=== PATIENT | female | born 1960 | race Caucasian/White ===

== ENCOUNTER 2017-06-16 21:13 | Inpatient (IN) | payer OTHER ==
[~2017-06-16] VITALS: Ht 154.9 cm; Wt 65.7 kg
[2017-06-16 21:48] LABS: BASOPHIL (%) 0 % (0-1); EOSINOPHIL (%) 0.2 % (0-5); HEMATOCRIT 45.4 % (36.0-46.0); HEMOGLOBIN 15.6 G/DL (11.9-15.5); IMMATURE GRANULOCYTE (%) 0.3 % (0.0-0.7); LYMPHOCYTE COUNT 3.3 K/uL (1.0-2.8); MCH 29.3 PG (29.0-34.0); MCHC 34.4 G/DL (30.0-36.0); MCV 85.2 FL (83-99); MONOCYTE COUNT 0.2 K/uL (0-0.8); NEUTROPHIL (%) 44.5 % (45-76); NEUTROPHIL COUNT 2.8 K/uL (1.8-6.4); PLATELET COUNT 309 K/uL (156-360); RBC DIS.WIDTH-CV 13.4 % (11.8-14.6); RBC DIS.WIDTH-SD 41.9 % (39-53); RED BLOOD COUNT 5.33 M/uL (3.80-5.20); WHITE BLOOD COUNT 6.3 K/uL (4.1-10.2)
[2017-06-16 22:04] LABS: PTT 29.8 SEC (25-37)
[2017-06-16 22:07] LABS: ALBUMIN 3.9 g/dL (3.2-4.8); CHLORIDE 109 mEq/L (99-109); SODIUM 144 mEq/L (136-147)
[2017-06-16 22:08] LABS: CARBON DIOXIDE (BICARBONATE) 22.2 MEQ/L (20-31)
[2017-06-16 22:09] LABS: GLUCOSE 167 mg/dL (70-99); TOTAL PROTEIN 6.2 g/dL (6.4-8.3)
[2017-06-16 22:11] LABS: TOTAL BILIRUBIN 0.4 mg/dL (0.0-1.0)
[2017-06-16 22:13] LABS: ALKALINE PHOSPHATASE 81 IU/L (3-129); GFR ESTIMATE (CALCULATED) > 59 mL/min/
[2017-06-16 22:14] LABS: AST (GOT) 17 IU/L (2-34); UREA NITROGEN (BUN) 17 mg/dL (9-23)
[2017-06-16 22:16] LABS: ALT (GPT) 11 IU/L (3-49); TROP-I INTERPRETATION NEGATIVE; TROPONIN-I < 0.01 ng/mL (0.0-0.30)
[2017-06-16] MEDS ORDERED: ESTROGEN-METHY1 EAC2 PO (22:37)
[2017-06-16] MEDS ORDERED: BELSOMRA20 MG PO (22:38)
[2017-06-16] MEDS ORDERED: NEURONTIN600 MG PO (22:38)
[2017-06-16] MEDS ORDERED: ADDERALL XR 2020 MG PO (22:39)
[2017-06-16] MEDS ORDERED: KLONOPIN0.5 M1 PO (22:39)
[2017-06-16] MEDS ORDERED: BUSPAR10 MG PO (22:39)
[2017-06-16] MEDS ORDERED: MINIPRESS2 MG PO (22:40)
[2017-06-16] MEDS ORDERED: ADDERALL XR 1010 MG PO (22:40)
[2017-06-16] MEDS ORDERED: BRINTELLIX20 MG PO (22:40)
[2017-06-16] MEDS ORDERED: ADVIL200 MG PO (22:41)
[2017-06-16 22:56] LABS: APPEARANCE CLEAR ((CLEAR)); BILIRUBIN NEGATIVE; BLOOD NEGATIVE; COLOR YELLOW ((YELLOW)); GLUCOSE (STRIP) NEGATIVE; KETONES NEGATIVE; LEUKOCYTES NEGATIVE; NITRITE NEGATIVE; PROTEIN (STRIP) 30; UCUL ADDED? NO; UROBILINOGEN 0.2 MG/DL (0.2-1.0)
[2017-06-16 23:13] LABS: SPECIFIC GRAVITY 1.067 (1.000-1.030)
[2017-06-17] VITALS (18 sets, daily range): BP systolic 110–144; BP diastolic 57–96
[2017-06-17 13:29] LABS: BASOPHIL (%) 0.2 % (0-1); EOSINOPHIL (%) 2.3 % (0-5); EOSINOPHIL COUNT 0.2 K/uL (0-0.3); HEMATOCRIT 34.5 % (36.0-46.0); IMMATURE GRANULOCYTE (%) 0.2 % (0.0-0.7); LYMPHOCYTE (%) 27.9 % (15-42); LYMPHOCYTE COUNT 1.8 K/uL (1.0-2.8); MCH 29.6 PG (29.0-34.0); MCHC 33.9 G/DL (30.0-36.0); MCV 87.3 FL (83-99); MONOCYTE (%) 5.3 % (3-12); MONOCYTE COUNT 0.4 K/uL (0-0.8); NEUTROPHIL (%) 64.1 % (45-76); NEUTROPHIL COUNT 4.2 K/uL (1.8-6.4); RBC DIS.WIDTH-CV 13.6 % (11.8-14.6); RBC DIS.WIDTH-SD 43.6 % (39-53); WHITE BLOOD COUNT 6.6 K/uL (4.1-10.2)
[2017-06-17 13:30] LABS: HEMOGLOBIN 11.7 G/DL (11.9-15.5); RED BLOOD COUNT 3.95 M/uL (3.80-5.20)
[2017-06-17 13:36] LABS: CHLORIDE 110 MEQ/L (99-109); CREATININE 0.7 MG/DL (0.6-1.3); GFR ESTIMATE (CALCULATED) > 59 mL/min/; SODIUM 144 MEQ/L (136-147); UREA NITROGEN (BUN) 9 mg/dL (9-23)
[2017-06-17 13:42] LABS: GLUCOSE 93 mg/dL (70-99)
[2017-06-17 13:44] LABS: PLAT.SUFFICIENCY ADEQUATE; PLATELET COUNT 197 K/uL (156-360)
[2017-06-17 19:03] LABS: HIGH-SENS C-REACTIVE PROTEIN 2.41 MG/DL (0.02-0.20)
[2017-06-18 04:00] VITALS: BP 113/65
[2017-06-18 08:27] VITALS: BP 128/70
[2017-06-18 11:30] VITALS: BP 113/64
[2017-06-18 16:58] LABS: PROCALCITONIN+ 0.33 ng/mL (<0.10)
[2017-06-20 16:36] LABS: M. pneumoniae Ab, IgG >5.00 (<=0.90); M. pneumoniae Ab, IgM 24 U/mL (<770)
== END 2017-06-18 12:04 | disposition home or self-care (01) | DRG 872 ==
LOC: EME 21:13 → 4WEST 23:18 → EDOF 23:18 → ENRESERV 23:21 → 4WEST 06-17 01:08 → ENRESERV 06-17 21:17 → 4EAST 06-17 22:31 → ENPENDDIS 06-18 → 4EAST 06-18 12:04
PROVIDERS: Emergency Medicine; Internal Medicine; Obstetrics & Gynecology
DX: A41.9 Sepsis, unspecified organism (principal); E87.2 Acidosis; R57.9 Shock, unspecified; I10 Essential (primary) hypertension; E87.6 Hypokalemia; E86.1 Hypovolemia; G47.00 Insomnia, unspecified; Z82.49 Family history of ischemic heart disease and other diseases of the circulatory system
CPT/HCPCS: 71045; 71275; 74174; 80047; 80048; 80053; 81003; 82803; 83605; 84145 90; 84484; 85025; 85610; 85730; 86141; 86664; 86665; 86713 90; 86738 90; 86850; 86900; 86901; 87040; 87502; 87641; 93005; C1751; J2405; J2543; J3370; J7030; J7050

== ENCOUNTER 2017-09-05 18:55 | Emergency (ER) | payer OTHER ==
[~2017-09-05] VITALS: Ht 154.9 cm; Wt 55.4 kg
[~2017-09-05 18:55] MED LIST: ADDERALL XR 1010 MG PO; ADDERALL XR 2020 MG PO; ADVIL200 MG PO; BELSOMRA20 MG PO; BRINTELLIX20 MG PO; BUSPAR10 MG PO; ESTROGEN-METHY1 EAC2 PO; KLONOPIN0.5 M1 PO; MINIPRESS2 MG PO; NEURONTIN600 MG PO
[2017-09-05 19:37] LABS: HEMATOCRIT 42.3 % (36.0-46.0); HEMOGLOBIN 14.5 G/DL (11.9-15.5); MCH 29.9 PG (29.0-34.0); MCHC 34.3 G/DL (30.0-36.0); MCV 87.2 FL (83-99); PLATELET COUNT 265 K/uL (156-360); RBC DIS.WIDTH-CV 14.4 % (11.8-14.6); RBC DIS.WIDTH-SD 46.4 % (39-53); RED BLOOD COUNT 4.85 M/uL (3.80-5.20); WHITE BLOOD COUNT 4.7 K/uL (4.1-10.2)
[2017-09-05 19:45] LABS: ALBUMIN 4.3 g/dL (3.2-4.8); CHLORIDE 108 mEq/L (99-109); POTASSIUM 3.1 mEq/L (3.7-5.4); SODIUM 142 mEq/L (136-147)
[2017-09-05 19:48] LABS: GLUCOSE 109 mg/dL (70-99); TOTAL PROTEIN 7.1 g/dL (6.4-8.3)
[2017-09-05 19:50] LABS: TOTAL BILIRUBIN 0.3 mg/dL (0.0-1.0)
[2017-09-05 19:51] LABS: ALKALINE PHOSPHATASE 100 IU/L (3-129); CREATININE 0.9 mg/dL (0.6-1.3); GFR ESTIMATE (CALCULATED) > 59 mL/min/
[2017-09-05 19:52] LABS: UREA NITROGEN (BUN) 13 mg/dL (9-23)
[2017-09-05 19:53] LABS: AST (GOT) 13 IU/L (2-34)
[2017-09-05 19:54] LABS: ALT (GPT) 14 IU/L (3-49)
[2017-09-05 20:00] LABS: APPEARANCE CLEAR ((CLEAR)); BILIRUBIN NEGATIVE; BLOOD LARGE; COLOR YELLOW ((YELLOW)); GLUCOSE (STRIP) NEGATIVE; KETONES 5; LEUKOCYTES NEGATIVE; NITRITE NEGATIVE; PROTEIN (STRIP) 100; SPECIFIC GRAVITY 1.036 (1.000-1.030); UROBILINOGEN 0.2 MG/DL (0.2-1.0)
[2017-09-05 20:08] LABS: BACTERIA NONE SEEN /HPF; EPITHELIAL CELLS RARE /HPF; MUCUS 1+ /LPF; RED BLOOD CELLS 0-5 /HPF (0-5); UCUL ADDED? NO; WHITE BLOOD CELLS 0-5 /HPF (0-5)
[2017-09-05] MEDS ORDERED: PHENERGAN25 MG PR (22:41)
[2017-09-05] MEDS ORDERED: REGLAN10 MG PO (22:41)
[2017-09-05 23:10] VITALS: BP 152/102
== END 2017-09-05 23:13 | disposition home or self-care (01) ==
LOC: EME 18:55
PROVIDERS: Nurse Practitioner Family
DX: D25.9 Leiomyoma of uterus, unspecified (principal); R11.2 Nausea with vomiting, unspecified; F32.9 Major depressive disorder, single episode, unspecified; I10 Essential (primary) hypertension
CPT/HCPCS: 76856; 80053; 81003; 85027; 99281; 99284

== ENCOUNTER 2017-09-17 15:32 | Inpatient (IN) | payer OTHER ==
[~2017-09-17] VITALS: Ht 154.9 cm; Wt 56.0 kg
[~2017-09-17 15:32] MED LIST changes: -KLONOPIN0.5 M1 PO; +KLONOPIN1 MG PO; +PHENERGAN25 MG PR; +REGLAN10 MG PO
[2017-09-17 16:08] LABS: HEMATOCRIT 51.1 % (36.0-46.0); HEMOGLOBIN 17.8 G/DL (11.9-15.5); MCH 30.2 PG (29.0-34.0); MCHC 34.8 G/DL (30.0-36.0); MCV 86.6 FL (83-99); PLATELET COUNT 317 K/uL (156-360); RBC DIS.WIDTH-CV 13.7 % (11.8-14.6); RBC DIS.WIDTH-SD 43.9 % (39-53); WHITE BLOOD COUNT 13.4 K/uL (4.1-10.2)
[2017-09-17 16:14] LABS: ALBUMIN 4.9 g/dL (3.2-4.8)
[2017-09-17 16:15] LABS: CHLORIDE 104 mEq/L (99-109); POTASSIUM 3.7 mEq/L (3.7-5.4); SODIUM 141 mEq/L (136-147)
[2017-09-17 16:17] LABS: GLUCOSE 121 mg/dL (70-99); TOTAL PROTEIN 8.6 g/dL (6.4-8.3)
[2017-09-17 16:19] LABS: TOTAL BILIRUBIN 0.3 mg/dL (0.0-1.0)
[2017-09-17 16:20] LABS: ALKALINE PHOSPHATASE 160 IU/L (3-129)
[2017-09-17 16:21] LABS: CREATININE 1.9 mg/dL (0.6-1.3); GFR ESTIMATE (CALCULATED) 29 mL/min/
[2017-09-17 16:22] LABS: AST (GOT) 33 IU/L (2-34); UREA NITROGEN (BUN) 31 mg/dL (9-23)
[2017-09-17 16:23] LABS: ALT (GPT) 60 IU/L (3-49)
[2017-09-17 16:52] LABS: APPEARANCE CLOUDY ((CLEAR)); BILIRUBIN SMALL; BLOOD NEGATIVE; COLOR AMBER ((YELLOW)); GLUCOSE (STRIP) NEGATIVE; KETONES 5; LEUKOCYTES NEGATIVE; NITRITE NEGATIVE; PROTEIN (STRIP) 100; SPECIFIC GRAVITY 1.027 (1.000-1.030)
[2017-09-17 17:23] LABS: RED BLOOD CELLS NONE SEEN /HPF (0-5)
[2017-09-17 17:24] LABS: BACTERIA 1+ /HPF; EPITHELIAL CELLS 3+ /HPF; MUCUS 3+ /LPF; UCUL ADDED? NO; WHITE BLOOD CELLS RARE /HPF (0-5)
[2017-09-17 18:01] LABS: MAGNESIUM 2.2 mg/dL (1.3-2.7)
[2017-09-17 18:08] LABS: LIPASE 28 U/L (1.0-51.0)
[2017-09-17] MEDS ORDERED: PROMETHEGAN25 MG PR (18:44)
[2017-09-17] MEDS ORDERED: ARIPIPRAZOLE2 MG PO (18:45)
[2017-09-17] MEDS ORDERED: BUPROPION XL300 MG PO (18:45)
[2017-09-17] MEDS ORDERED: FLUVOXAMINE MA150 MG PO (18:46)
[2017-09-17] MEDS ORDERED: TEMAZEPAM30 MG PO (18:47)
[2017-09-17 19:21] LABS: C DIFF TOXIN NEGATIVE (NEGATIVE)
[2017-09-18 02:11] VITALS: BP 125/85
[2017-09-18 07:30] VITALS: BP 97/54
[2017-09-18 09:51] LABS: HEMATOCRIT 36.3 % (36.0-46.0); MCH 28.9 PG (29.0-34.0); MCHC 33.1 G/DL (30.0-36.0); MCV 87.5 FL (83-99); RBC DIS.WIDTH-CV 13.4 % (11.8-14.6); RBC DIS.WIDTH-SD 43.3 % (39-53); WHITE BLOOD COUNT 4.6 K/uL (4.1-10.2)
[2017-09-18 09:56] LABS: RED BLOOD COUNT 4.15 M/uL (3.80-5.20)
[2017-09-18 10:08] LABS: CHLORIDE 111 MEQ/L (99-109); GLUCOSE 158 mg/dL (70-99); SODIUM 141 MEQ/L (136-147); UREA NITROGEN (BUN) 12 mg/dL (9-23)
[2017-09-18 10:09] LABS: GFR ESTIMATE (CALCULATED) > 59 mL/min/
[2017-09-18 10:40] LABS: PLATELET COUNT 187 K/uL (156-360)
[2017-09-18 10:43] LABS: MAGNESIUM 1.6 mg/dl (1.3-2.7)
[2017-09-18 19:55] VITALS: BP 142/79
[2017-09-18 23:37] VITALS: BP 150/79
[2017-09-19 06:35] LABS: BASOPHIL (%) 0.3 % (0-1); EOSINOPHIL (%) 6.5 % (0-5); EOSINOPHIL COUNT 0.4 K/uL (0-0.3); HEMATOCRIT 37.8 % (36.0-46.0); HEMOGLOBIN 12.6 G/DL (11.9-15.5); IMMATURE GRANULOCYTE (%) 0.3 % (0.0-0.7); LYMPHOCYTE (%) 38.3 % (15-42); LYMPHOCYTE COUNT 2.3 K/uL (1.0-2.8); MCH 29.1 PG (29.0-34.0); MCHC 33.3 G/DL (30.0-36.0); MCV 87.3 FL (83-99); MONOCYTE (%) 6.5 % (3-12); MONOCYTE COUNT 0.4 K/uL (0-0.8); NEUTROPHIL (%) 48.1 % (45-76); NEUTROPHIL COUNT 2.8 K/uL (1.8-6.4); PLATELET COUNT 191 K/uL (156-360); RBC DIS.WIDTH-CV 13.1 % (11.8-14.6); RBC DIS.WIDTH-SD 41.4 % (39-53); RED BLOOD COUNT 4.33 M/uL (3.80-5.20); WHITE BLOOD COUNT 5.9 K/uL (4.1-10.2)
[2017-09-19 07:15] LABS: ALBUMIN 3.5 G/DL (3.2-4.8); ALKALINE PHOSPHATASE 89 IU/L (3-129); ALT (GPT) 32 IU/L (3-49); AST (GOT) 19 IU/L (2-34); CHLORIDE 109 MEQ/L (99-109); CREATININE 0.9 MG/DL (0.6-1.3); GFR ESTIMATE (CALCULATED) > 59 mL/min/; SODIUM 141 MEQ/L (136-147); TOTAL BILIRUBIN 0.3 MG/DL (0.0-1.0); TOTAL PROTEIN 5.3 G/DL (6.4-8.3); UREA NITROGEN (BUN) 4 mg/dL (9-23)
[2017-09-19 07:16] VITALS: BP 129/74
[2017-09-19 07:18] LABS: GLUCOSE 93 mg/dL (70-99); POTASSIUM 3.8 MEQ/L (3.7-5.4)
[2017-09-19] MEDS ORDERED: ZOFRAN8 MG PO (10:39)
[2017-09-19] MEDS ORDERED: PROTONIX40 MG PO (10:39)
== END 2017-09-19 13:50 | disposition home or self-care (01) | DRG 684 ==
LOC: EME 15:32 → EDOF 23:55 → 5EAST 23:55 → ENRESERV 23:57 → 5EAST 09-18 01:56 → ENPENDDIS 09-19 → 5EAST 09-19 13:50
PROVIDERS: Emergency Medicine; Hospitalist
DX: N17.9 Acute kidney failure, unspecified (principal); E87.6 Hypokalemia; E83.51 Hypocalcemia; F43.10 Post-traumatic stress disorder, unspecified; F32.9 Major depressive disorder, single episode, unspecified; K21.9 Gastro-esophageal reflux disease without esophagitis; F17.200 Nicotine dependence, unspecified, uncomplicated; E86.0 Dehydration; N20.0 Calculus of kidney
CPT/HCPCS: 74176; 80048; 80053; 81003; 82040; 82306; 83690; 83735; 85025; 85027; 87493; 93005; 99281; 99285; C9113; J1644; J2405; J3475; J7030; S0028

== ENCOUNTER 2017-09-26 21:41 | Emergency (ER) | payer OTHER ==
[~2017-09-26] VITALS: Ht 154.9 cm; Wt 55.3 kg
[~2017-09-26 21:41] MED LIST changes: +ARIPIPRAZOLE2 MG PO; +BUPROPION XL300 MG PO; +FLUVOXAMINE MA150 MG PO; +PROMETHEGAN25 MG PR; +PROTONIX40 MG PO; +TEMAZEPAM30 MG PO; +ZOFRAN8 MG PO
[2017-09-26 22:10] LABS: HEMATOCRIT 40.3 % (36.0-46.0); MCH 30.1 PG (29.0-34.0); MCHC 34.7 G/DL (30.0-36.0); MCV 86.7 FL (83-99); PLATELET COUNT 221 K/uL (156-360); RBC DIS.WIDTH-CV 13.1 % (11.8-14.6); RBC DIS.WIDTH-SD 41.4 % (39-53); RED BLOOD COUNT 4.65 M/uL (3.80-5.20); WHITE BLOOD COUNT 6.1 K/uL (4.1-10.2)
[2017-09-26 22:20] LABS: ALBUMIN 3.7 g/dL (3.2-4.8)
[2017-09-26 22:21] LABS: CHLORIDE 107 mEq/L (99-109); POTASSIUM 3.5 mEq/L (3.7-5.4); SODIUM 140 mEq/L (136-147)
[2017-09-26 22:23] LABS: GLUCOSE 122 mg/dL (70-99); TOTAL PROTEIN 5.8 g/dL (6.4-8.3)
[2017-09-26 22:25] LABS: TOTAL BILIRUBIN 0.2 mg/dL (0.0-1.0)
[2017-09-26 22:26] LABS: ALKALINE PHOSPHATASE 110 IU/L (3-129)
[2017-09-26 22:27] LABS: CREATININE 0.9 mg/dL (0.6-1.3); GFR ESTIMATE (CALCULATED) > 59 mL/min/
[2017-09-26 22:28] LABS: AST (GOT) 14 IU/L (2-34); UREA NITROGEN (BUN) 14 mg/dL (9-23)
[2017-09-26 22:30] LABS: ALT (GPT) 15 IU/L (3-49); LIPASE 12 U/L (1.0-51.0)
[2017-09-26 23:27] LABS: APPEARANCE CLEAR ((CLEAR)); BILIRUBIN NEGATIVE; BLOOD NEGATIVE; COLOR YELLOW ((YELLOW)); GLUCOSE (STRIP) NEGATIVE; KETONES NEGATIVE; LEUKOCYTES NEGATIVE; NITRITE NEGATIVE; PROTEIN (STRIP) NEGATIVE; UCUL ADDED? NO; UROBILINOGEN 0.2 MG/DL (0.2-1.0)
[2017-09-27] MEDS ORDERED: LEVSIN-SL0.125 MG SL (00:09)
[2017-09-27 00:58] VITALS: BP 115/82
== END 2017-09-27 00:59 | disposition home or self-care (01) ==
LOC: EME 21:41
DX: E86.0 Dehydration (principal); R19.7 Diarrhea, unspecified; R14.0 Abdominal distension (gaseous); F41.9 Anxiety disorder, unspecified; F32.9 Major depressive disorder, single episode, unspecified; F98.8 Other specified behavioral and emotional disorders with onset usually occurring in childhood and adolescence; F17.200 Nicotine dependence, unspecified, uncomplicated; Z87.442 Personal history of urinary calculi; Z90.49 Acquired absence of other specified parts of digestive tract
CPT/HCPCS: 74022; 80053; 81003; 83690; 83735; 85027; 99281; 99284; J7120